=== PATIENT | male | born 1990 | race Caucasian/White ===

== ENCOUNTER 2024-03-26 18:29 | Emergency (ER) | payer OTHER ==
[~2024-03-26] VITALS: Ht 177.8 cm; Wt 125.0 kg
[2024-03-26 18:53] VITALS: BP 134/77; PULSE 88; O2SAT 97
[2024-03-26] MEDS: TETRACAINE 0.5% 4 ML OPHTHALMIC DROPS LEFTEYE ONE (19:18)
[2024-03-26] MEDS: proparacaine 0.5% ophthalmic drops 15ml EACHEYE ONE (19:40)
[2024-03-26 19:52] VITALS: RESP 16; TEMP 98.7
[2024-03-26] MEDS ORDERED: CIPR2.5D21 LEFTEYE (19:52)
== END 2024-03-26 19:56 | disposition home or self-care (01) ==
LOC: ER 18:30
DX: S05.02XA Injury of conjunctiva and corneal abrasion without foreign body, left eye, initial encounter (principal); X58.XXXA Exposure to other specified factors, initial encounter; Y93.89 Activity, other specified; Y92.89 Other specified places as the place of occurrence of the external cause; Y99.8 Other external cause status
CPT/HCPCS: 99283